=== PATIENT | male | born 1945 | race Caucasian/White ===

== ENCOUNTER 2021-05-28 10:20 | Inpatient (IN) | payer OTHER, BC ==
[2021-05-28 12:17] LABS: EOS % 1.2 % (0-4.5); HEMATOCRIT 40.5 % (35.4-49); HEMOGLOBIN 14.3 GM/dL (11.7-16.9); LYMPH % 7.4 % (8-40); MCH 34.4 pg (25.7-33.7); MCHC 35.3 g/dl (32.0-35.9); MEAN CELL VOLUME 97.4 fl (80-96); MEAN PLT VOLUME 8.3 fl (7.5-11.1); MONO % 6.5 % (3.8-10.2); NEUT % 83.9 % (42.8-82.8); PLATELET COUNT 224 10^3/uL (134-434); RBC 4.16 M/mm3 (4.00-5.60); WHITE BLOOD COUNT 7.6 K/mm3 (4.0-10.0)
[2021-05-28 12:25] LABS: INR 0.97 (0.83-1.09); PROTHROMBIN TIME (PATIENT) 11.8 SEC (9.7-13.0)
[2021-05-28 12:28] LABS: ACTIVATED PTT 30.7 SECONDS (25.2-36.5)
[2021-05-28 12:35] LABS: ALBUMIN 3.9 g/dl (3.4-5.0)
[2021-05-28 12:38] LABS: CREATININE 1.2 mg/dL (0.55-1.3)
[2021-05-28 12:40] LABS: BILIRUBIN,TOTAL 0.3 mg/dL (0.2-1); TOT PROT 6.7 g/dl (6.4-8.2)
[2021-05-28] MEDS ORDERED: LACTATED RINGERS SOLUTION 1000 ML INFUS.BAG IV ONE (13:21)
[2021-05-28] MEDS ORDERED: ENOXAPARIN NA (PORCINE) 40 MG/0.4 ML DISP.SYRIN SQ ONE (13:47)
[2021-05-28] MEDS: ENOXAPARIN NA (PORCINE) 40 MG/0.4 ML DISP.SYRIN SQ SCH (13:55)
[2021-05-28 15:18] LABS: MAGNESIUM 2.2 mg/dL (1.8-2.4)
[2021-05-28 15:21] LABS: PHOSPHOROUS 2.5 mg/dL (2.5-4.9)
[2021-05-28] MEDS: CHLORHEXIDINE GLUCONATE 4% CLEANSER FOR DECOLONIZATION TP SCH (21:50)
[2021-05-28] MEDS: MUPIROCIN 2% TOPICAL OINTMENT FOR DECOLONIZATION NS SCH (23:40)
[2021-05-29] MEDS: LEVOTHYROXINE NA 150 MCG TABLET PO SCH (06:48)
[2021-05-29 07:10] LABS: BASO % 0.8 % (0-2.0); EOS % 2.5 % (0-4.5); HEMATOCRIT 38.7 % (35.4-49); HEMOGLOBIN 13.7 GM/dL (11.7-16.9); LYMPH % 16.9 % (8-40); MCH 34.4 pg (25.7-33.7); MCHC 35.3 g/dl (32.0-35.9); MEAN CELL VOLUME 97.4 fl (80-96); MEAN PLT VOLUME 8.7 fl (7.5-11.1); MONO % 10.8 % (3.8-10.2); PLATELET COUNT 203 10^3/uL (134-434); RBC 3.97 M/mm3 (4.00-5.60); RDW 13.7 % (11.9-15.9); WHITE BLOOD COUNT 6.8 K/mm3 (4.0-10.0)
[2021-05-29 07:34] LABS: ALBUMIN 3.5 g/dl (3.4-5.0); BLOOD UREA NITROGEN 16.8 mg/dL (7-18); CALCIUM 8.3 mg/dL (8.5-10.1); MAGNESIUM 2.1 mg/dL (1.8-2.4)
[2021-05-29 07:37] LABS: CREATININE 1.2 mg/dL (0.55-1.3); PHOSPHOROUS 2.2 mg/dL (2.5-4.9)
[2021-05-29 07:39] LABS: BILIRUBIN,TOTAL 0.5 mg/dL (0.2-1); TOT PROT 6.1 g/dl (6.4-8.2)
[2021-05-29] MEDS ORDERED: TAMSULOSIN HCL 0.4 MG CAP PO SCH (08:30)
[2021-05-29] MEDS ORDERED: PATIENT'S OWN MEDICATION (NON-FORMULARY) (Alfuzosin Hcl [Alfuzosin Hcl Er] 10 MG Tab.Er.24 PO SCH ×2 (10:00→10:11)
[2021-05-29] MEDS ORDERED: FENOFIBRIC ACID 135 MG CAP PO SCH (10:00)
[2021-05-29] MEDS ORDERED: PT OWN MED DRAWER 7, Y5N ONE ×2 (10:17→10:25)
[2021-05-29] MEDS: ENOXAPARIN NA (PORCINE) 40 MG/0.4 ML DISP.SYRIN SQ SCH (10:20)
[2021-05-29] MEDS: FENOFIBRIC ACID 135 MG CAP PO SCH (10:20)
[2021-05-29] MEDS ORDERED: PATIENT'S OWN MEDICATION (NON-FORMULARY) (Alfuzosin Hcl [Alfuzosin Hcl Er] 10 MG) PO SCH (11:28)
[2021-05-29] MEDS: MUPIROCIN 2% TOPICAL OINTMENT FOR DECOLONIZATION NS SCH ×2 (13:48→23:02)
[2021-05-29] MEDS ORDERED: MELATONIN 5 MG TABLETS PO ONE (22:57)
[2021-05-29] MEDS: CHLORHEXIDINE GLUCONATE 4% CLEANSER FOR DECOLONIZATION TP SCH (23:02)
[2021-05-30] MEDS: LEVOTHYROXINE NA 150 MCG TABLET PO SCH ×2 (06:19→08:34)
[2021-05-30] MEDS: FENOFIBRIC ACID 135 MG CAP PO SCH (09:00)
[2021-05-30] MEDS: MUPIROCIN 2% TOPICAL OINTMENT FOR DECOLONIZATION NS SCH (09:04)
[2021-05-30] MEDS ORDERED: PROPOFOL 20 ML ONE (11:44)
[2021-05-30] MEDS ORDERED: MIDAZOLAM HCL 2 MG/2 ML SINGLE DOSE VIAL ONE ×2 (11:44)
[2021-05-30] MEDS ORDERED: ePHEDrine SULFATE 50 MG/1 ML AMPULE ONE (11:49)
[2021-05-30] MEDS ORDERED: ATROPINE SO4 0.4 MG/1 ML VIAL ONE (11:49)
[2021-05-30] MEDS ORDERED: SODIUM CHLORIDE 0.9% P/F 10 ML VIAL IJ ONE (11:52)
[2021-05-30] MEDS ORDERED: BUPIVACAINE HCL/PF 0.5% (5MG/ML) 10 ML VIAL ONE (11:53)
[2021-05-30] MEDS ORDERED: LIDOCAINE HCL 1%, 10 MG/ML (20ML VIAL) ONE (11:53)
[2021-05-30] MEDS ORDERED: ceFAZolin SODIUM 1 GM VIAL ONE (12:43)
[2021-05-30] MEDS ORDERED: LIDOCAINE HCL 1%, 10 MG/ML (50 mL VIAL) INF ONE (12:49)
[2021-05-30] MEDS ORDERED: BUPIVACAINE HCL/PF 0.5% (5 MG/ML) 30 ML VIAL IJ ONE (12:49)
[2021-05-30 14:53] VITALS: PULSE 73
[2021-05-30 14:54] VITALS: TEMP 97.6
[2021-05-30 15:07] VITALS: BMI 30.6
[2021-05-30 15:09] VITALS: BP 133/87
[2021-05-30] MEDS ORDERED: CHLORHEXIDINE GLUCONATE 4% CLEANSER FOR DECOLONIZATION TP SCH (22:00)
[2021-05-30] MEDS ORDERED: MUPIROCIN 2% TOPICAL OINTMENT FOR DECOLONIZATION NS SCH (22:00)
== END 2021-05-30 19:01 | disposition home or self-care (01) | DRG 244 ==
LOC: JER 10:20 → JERBED 12:01 → JICU 14:09
PROVIDERS: ADMIT Internal Medicine; ATTEND Internal Medicine
PROC: 02HK3JZ Insertion of Pacemaker Lead into Right Ventricle, Percutaneous Approach (ICD-10-PCS; 2021-05-30)
PROC: 02H63JZ Insertion of Pacemaker Lead into Right Atrium, Percutaneous Approach (ICD-10-PCS; 2021-05-30)
PROC: 0JH606Z Insertion of Pacemaker, Dual Chamber into Chest Subcutaneous Tissue and Fascia, Open Approach (ICD-10-PCS; principal; 2021-05-30 12:00)
DX: I44.1 Atrioventricular block, second degree (principal); I47.2 Ventricular tachycardia; I48.91 Unspecified atrial fibrillation; E03.9 Hypothyroidism, unspecified; E78.5 Hyperlipidemia, unspecified
CPT/HCPCS: 36415; 71045-TC-FY; 80053; 83036; 83735; 84100; 84439; 84443; 85025; 85610; 85730; 86850; 86900; 86901; 93005; 93010; 93306-TC; 99285-25; C9803; U0003; U0005

== ENCOUNTER 2023-08-20 04:57 | Day surgery (SDC) | payer OTHER, BC ==
[2023-08-15 13:35] VITALS: BMI 30.5
[~2023-08-20 04:57] MED LIST: ACETAMINOPHEN 325 MG TABLET (FP) PO PRN; BSS (NA/CA/MG/K) BALANCED SALT SOLUTION OPHTH SOLN 15 ML BOTTLE OS ONE; CHONDROITIN SU A/HYALUR SOD 1 KIT IO ONE; LIDOCAINE HCL 1% PRESERVATIVE FREE - 30ML VIAL IO ONE; PHENYLEPHRINE 2.5% OPHTH SOLN 15 ML BOTTLE OP SCH; PHENYLEPHRINE/KETOROLAC 4 ML VIAL IO ONE
[2023-08-20] MEDS ORDERED: PHENYLEPHRINE/KETOROLAC 4 ML VIAL IO ONE ×2 (07:22→11:35)
[2023-08-20] MEDS ORDERED: POVIDONE-IODINE 5% OPHTHALMIC PREP 30 ML SOLUTION ONE (07:22)
[2023-08-20] MEDS ORDERED: TETRACAINE 0.5% OPHTH SOLN 2 ML BOTTLE ONE (07:22)
[2023-08-20] MEDS ORDERED: BSS (NA/CA/MG/K) BALANCED SALT SOLUTION OPHTH SOLN 15 ML BOTTLE ONE (07:22)
[2023-08-20 08:24] VITALS: RESP 20
[2023-08-20] MEDS ORDERED: CYCLOPENTOLATE HCL 1% OPHTH SOLN 2 ML BOTTLE ONE (08:36)
[2023-08-20] MEDS ORDERED: OFLOXACIN 0.3% OPHTHALMIC SOLUTION 5 ML BOTTLE ONE (08:36)
[2023-08-20] MEDS ORDERED: TROPICAMIDE 1% OPHTH SOLN 15 ML BOTTLE ONE (08:36)
[2023-08-20] MEDS ORDERED: KETOROLAC TROMETHAMINE 0.5% EYE DROP 1 DROP DROPS ONE (08:36)
[2023-08-20] MEDS: CYCLOPENTOLATE HCL 1% OPHTH SOLN 2 ML BOTTLE OP SCH ×3 (08:49→09:25)
[2023-08-20] MEDS: KETOROLAC TROMETHAMINE 0.5% EYE DROP 1 DROP DROPS OP SCH ×3 (08:49→09:26)
[2023-08-20] MEDS: OFLOXACIN 0.3% OPHTHALMIC SOLUTION 5 ML BOTTLE OP SCH ×3 (08:50→09:26)
[2023-08-20] MEDS: TROPICAMIDE 1% OPHTH SOLN 15 ML BOTTLE OP SCH ×3 (08:50→09:27)
[2023-08-20] MEDS: PHENYLEPHRINE 2.5% OPTHALMIC DROP 2ML BOTTLE ONE ×3 (08:50→09:26)
[2023-08-20] MEDS ORDERED: TETRACAINE 0.5% OPHTH SOLN 2 ML BOTTLE TP ONE (11:20)
[2023-08-20] MEDS ORDERED: MIDAZOLAM HCL 2 MG/2 ML SINGLE DOSE VIAL ONE (11:22)
[2023-08-20] MEDS ORDERED: POVIDONE-IODINE 5% OPHTHALMIC PREP 30 ML SOLUTION OS ONE (11:23)
[2023-08-20] MEDS ORDERED: LIDOCAINE HCL 1% PRESERVATIVE FREE - 30ML VIAL IO ONE (11:27)
[2023-08-20] MEDS ORDERED: CHONDROITIN SU A/HYALUR SOD 1 KIT IO ONE (11:35)
[2023-08-20] MEDS ORDERED: BSS (NA/CA/MG/K) BALANCED SALT SOLUTION OPHTH SOLN 15 ML BOTTLE OS ONE (11:35)
[2023-08-20 12:38] VITALS: PULSE 68
[2023-08-20] MEDS ORDERED: ACETAMINOPHEN 325 MG TABLET (FP) ONE (12:42)
[2023-08-20 13:54] VITALS: BP 116/70; TEMP 97
== END 2023-08-20 13:20 | disposition home or self-care (01) ==
LOC: JASU-SURG 04:57
PROVIDERS: ATTEND Ophthalmology
PROC: 08RK3JZ Replacement of Left Lens with Synthetic Substitute, Percutaneous Approach (ICD-10-PCS; principal; 2023-08-20 10:00)
DX: H26.9 Unspecified cataract (principal)
CPT/HCPCS: J1097; V2632

== ENCOUNTER 2023-09-03 04:31 | Day surgery (SDC) | payer OTHER, BC ==
[2023-09-02 12:04] VITALS: BMI 30.5
[~2023-09-03 04:31] MED LIST changes: -BSS (NA/CA/MG/K) BALANCED SALT SOLUTION OPHTH SOLN 15 ML BOTTLE OS ONE; -CHONDROITIN SU A/HYALUR SOD 1 KIT IO ONE; -LIDOCAINE HCL 1% PRESERVATIVE FREE - 30ML VIAL IO ONE; -PHENYLEPHRINE 2.5% OPHTH SOLN 15 ML BOTTLE OP SCH; -PHENYLEPHRINE/KETOROLAC 4 ML VIAL IO ONE
[2023-09-03] MEDS ORDERED: PHENYLEPHRINE/KETOROLAC 4 ML VIAL IO ONE ×2 (07:26→11:02)
[2023-09-03] MEDS ORDERED: POVIDONE-IODINE 5% OPHTHALMIC PREP 30 ML SOLUTION ONE (07:27)
[2023-09-03] MEDS ORDERED: TETRACAINE 0.5% OPHTH SOLN 2 ML BOTTLE ONE (07:27)
[2023-09-03] MEDS ORDERED: LIDOCAINE HCL/PF 1% SDV 5ML VIAL ONE (07:38)
[2023-09-03] MEDS ORDERED: CYCLOPENTOLATE HCL 1% OPHTH SOLN 2 ML BOTTLE ONE (08:10)
[2023-09-03] MEDS ORDERED: PHENYLEPHRINE 2.5% OPTHALMIC DROP 2ML BOTTLE ONE (08:10)
[2023-09-03] MEDS ORDERED: KETOROLAC TROMETHAMINE 0.5% EYE DROP 1 DROP DROPS ONE (08:10)
[2023-09-03] MEDS ORDERED: TROPICAMIDE 1% OPHTH SOLN 15 ML BOTTLE ONE (08:10)
[2023-09-03] MEDS ORDERED: OFLOXACIN 0.3% OPHTHALMIC SOLUTION 5 ML BOTTLE ONE (08:11)
[2023-09-03 08:13] VITALS: RESP 20
[2023-09-03] MEDS: CYCLOPENTOLATE HCL 1% OPHTH SOLN 2 ML BOTTLE OP SCH ×3 (08:36→08:57)
[2023-09-03] MEDS: TROPICAMIDE 1% OPHTH SOLN 15 ML BOTTLE OP SCH ×3 (08:36→08:57)
[2023-09-03] MEDS: PHENYLEPHRINE 2.5% OPHTH SOLN 15 ML BOTTLE OP SCH ×3 (08:36→08:57)
[2023-09-03] MEDS: OFLOXACIN 0.3% OPHTHALMIC SOLUTION 5 ML BOTTLE OP SCH ×3 (08:36→08:57)
[2023-09-03] MEDS: KETOROLAC TROMETHAMINE 0.5% EYE DROP 1 DROP DROPS OP SCH ×3 (08:36→08:57)
[2023-09-03] MEDS ORDERED: MIDAZOLAM HCL 2 MG/2 ML SINGLE DOSE VIAL ONE (10:25)
[2023-09-03] MEDS ORDERED: TETRACAINE 0.5% OPHTH SOLN 2 ML BOTTLE TP ONE (10:45)
[2023-09-03] MEDS ORDERED: POVIDONE-IODINE 5% OPHTHALMIC PREP 30 ML SOLUTION OD ONE (10:47)
[2023-09-03] MEDS ORDERED: BSS (NA/CA/MG/K) BALANCED SALT SOLUTION OPHTH SOLN 15 ML BOTTLE OD ONE (10:55)
[2023-09-03] MEDS ORDERED: LIDOCAINE HCL 1% PRESERVATIVE FREE - 30ML VIAL IO ONE (10:56)
[2023-09-03] MEDS ORDERED: CHONDROITIN SU A/HYALUR SOD 1 KIT IO ONE (10:56)
[2023-09-03] MEDS ORDERED: ACETAMINOPHEN 325 MG TABLET (FP) ONE (11:48)
[2023-09-03] MEDS ORDERED: ACETAMINOPHEN 325 MG TABLET (FP) PO ONE ×2 (11:50→12:04)
[2023-09-03 12:02] VITALS: BP 122/69; PULSE 61; TEMP 97.8
== END 2023-09-03 12:06 | disposition home or self-care (01) ==
LOC: JASU-SURG 04:31
PROVIDERS: ATTEND Ophthalmology
PROC: 08RJ3JZ Replacement of Right Lens with Synthetic Substitute, Percutaneous Approach (ICD-10-PCS; principal; 2023-09-03 10:00)
DX: H26.9 Unspecified cataract (principal)
CPT/HCPCS: 66984; V2632; J1097

== ENCOUNTER 2024-07-30 04:24 | Day surgery (SDC) | payer OTHER, BC ==
[2024-07-27 13:12] VITALS: BMI 31.1
[2024-07-30 11:13] VITALS: TEMP 97.9
[2024-07-30 11:38] VITALS: RESP 16
[2024-07-30 11:56] VITALS: BP 134/81; PULSE 65
== END 2024-07-30 11:55 | disposition home or self-care (01) ==
LOC: JASU-ENDO 04:24
PROVIDERS: ATTEND Internal Medicine Gastroenterology
PROC: 0DJD8ZZ Inspection of Lower Intestinal Tract, Via Natural or Artificial Opening Endoscopic (ICD-10-PCS; principal; 2024-07-30 11:00)
DX: Z12.11 Encounter for screening for malignant neoplasm of colon (principal); K55.20 Angiodysplasia of colon without hemorrhage; K57.30 Diverticulosis of large intestine without perforation or abscess without bleeding; K64.8 Other hemorrhoids; Z86.010 Personal history of colon polyps